=== PATIENT | male | born 1945 | race African-American/Black ===

== ENCOUNTER 2019-04-25 18:03 | Inpatient (IN) ==
[2019-04-25] MEDS ORDERED: SODIUM CHLORIDE 0.9% 500 ML IV STA (18:53)
[2019-04-25] MEDS ORDERED: NALOXONE 0.4 MG/ML VIAL IV STA (18:55)
[2019-04-25 19:40] LABS: Alanine Aminotransferase 23 U/L (16-61); Albumin 1.8 G/DL (3.4-5.0); Alkaline Phosphatase 181 U/L (45-117); Aspartate Amino Transferase 63 U/L (0-37); Blood Urea Nitrogen 48 MG/DL (7-18); Calcium 8.7 MG/DL (8.5-10.1); Estimated Glom Filtration Rate 27 ML/MIN; Glucose 389 MG/DL (74-106); Osmolality,Calculated 298.1 MOS/KG (273-304); Total Protein 6.6 G/DL (6.4-8.3)
[2019-04-25 19:42] LABS: ABG Base Excess 5.3 MMOL/L (-2.5-2.5); ABG HCO3 29.1 MMOL/L (20-26); ABG Oxygen Saturation 97.3 % (95-100); ABG PCO2 29.8 MM HG (35-48); ABG PH 7.559 (7.35-7.45); ABG PO2 80.7 MM HG (80-95); ABG TCO2 22.3 MMOL/L (23-27); Allen Test Positive
[2019-04-25 19:53] LABS: Apearance,Urine CLOUDY (Clear); Bilirubin,Urine Small mg/dL (Negative); Blood, Urine Small mg/dL (Negative); Glucose,Urine (UA) 150 mg/dL (Negative); Ketones,Urine Negative (Negative); Mucus,Urine Occasional /LPF (Occasional); Nitrite,Urine Negative (Negative); Protein,Urine 100 MG/DL; RBC,Urine 3 /HPF (0-4); Squamous Epithelial Cell,Urine Occasional /HPF (0-10); Urine Color Amber (Yellow); Urine Specific Gravity 1.028 (1.001-1.035); WBC,Urine 3 /HPF (0-6)
[2019-04-25 20:13] LABS: Barbiturates Screen,Urine Negative (Negative); Benzodiazepines Screen,Urine Negative (Negative); Cannabinoid Screen,Urine Negative (Negative); Opiate Screen,Urine Positive (Negative); Phencyclidine Screen,Urine Negative (Negative)
[2019-04-25] MEDS ORDERED: SODIUM CHLORIDE 0.9% 1,000 ML IV STA (20:16)
[2019-04-25] MEDS ORDERED: POTASSIUM CHLORIDE RIDER 20 MEQ in PREMIX 1 EACH IV STA (20:39)
[2019-04-25] MEDS ORDERED: cefTRIAXone 1,000 MG in SODIUM CHLORIDE 0.9% 100 ML IV STA (20:39)
[2019-04-25 20:48] LABS: Basophils % 0.1 % (0.0-0.8); Hematocrit 31.5 VOL% (42.0-52.0); Hemoglobin 10.8 GM/DL (14.0-18.0); Immature Granulocytes Absolute 0.17 #; Lymphocytes # 0.9 10*3/uL (1.4-4.0); Lymphocytes % 5.3 % (21.2-54.2); Mean Corpuscular HGB Conc 34.3 GM/DL (32-36); Mean Corpuscular Volume 88.2 FL (87-102); Mean Platelet Volume 11.8 FL (9.6-12.0); Monocytes % 6.5 % (1.7-12.7); Neutrophils % 87.1 % (38.7-73.9); Platelet Count 300 T/CUMM (130-400); Red Blood Count 3.57 MC/CUMM (3.8-5.5); Red Cell Distribution Width 13.3 % (9.3-17.3); White Blood Count 16.9 T/CUMM (4-12)
[2019-04-25 20:53] LABS: INR 1.3; PT Patient Result 14.1 SECS (9.6-12.2)
[2019-04-25] MEDS ORDERED: DOCUSATE SODIUM 100 MG CAPSULE PO PRN (21:04)
[2019-04-25] MEDS ORDERED: ACETAMINOPHEN 325 MG TABLET PO PRN (21:04)
[2019-04-25] MEDS: POTASSIUM CHLORIDE RIDER 10 MEQ in PREMIX 1 EACH IV SCH (21:31)
[2019-04-25] MEDS ORDERED: SODIUM CHLORIDE 0.9% 500 ML IV ONE (23:17)
[2019-04-25] MEDS: SODIUM CHLORIDE 0.9% 1,000 ML IV SCH (23:31)
[2019-04-26] MEDS: POTASSIUM CHLORIDE RIDER 10 MEQ in PREMIX 1 EACH IV SCH (00:14)
[2019-04-26] MEDS ORDERED: VANCOMYCIN INJ 1,750 MG in SODIUM CHLORIDE 0.9% 500 ML IV ONE (01:30)
[2019-04-26 01:39] LABS: Basophils % 0.1 % (0.0-0.8); Hemoglobin 9.5 GM/DL (14.0-18.0); Immature Granulocytes % 1.2 %; Immature Granulocytes Absolute 0.18 #; Lymphocytes # 0.9 10*3/uL (1.4-4.0); Lymphocytes % 5.6 % (21.2-54.2); Mean Corpuscular HGB Conc 33.9 GM/DL (32-36); Mean Corpuscular Volume 88.6 FL (87-102); Mean Platelet Volume 10.8 FL (9.6-12.0); Monocytes % 6.9 % (1.7-12.7); Neutrophils % 86.2 % (38.7-73.9); Platelet Count 260 T/CUMM (130-400); Red Blood Count 3.16 MC/CUMM (3.8-5.5); Red Cell Distribution Width 13.4 % (9.3-17.3); White Blood Count 15.2 T/CUMM (4-12)
[2019-04-26] MEDS ORDERED: VANCOMYCIN INJ 1,250 MG in SODIUM CHLORIDE 0.9% 250 ML IV PRN (01:54)
[2019-04-26] MEDS: ONDANSETRON 4 MG/2 ML VIAL IV PRN ×2 (02:01→10:09)
[2019-04-26 02:23] LABS: Albumin 1.6 G/DL (3.4-5.0); Bilirubin,Total 3.5 MG/DL (0.2-1.0); Calcium 8.2 MG/DL (8.5-10.1); Osmolality,Calculated 313.4 MOS/KG (273-304); Total Protein 5.9 G/DL (6.4-8.3)
[2019-04-26] MEDS: POTASSIUM CHLORIDE RIDER 10 MEQ in PREMIX 1 EACH IV PRN ×6 (03:34→12:11)
[2019-04-26] MEDS: SODIUM CHLORIDE 0.9% 1,000 ML IV SCH ×2 (05:52→08:10)
[2019-04-26] MEDS ORDERED: POTASSIUM CHLORIDE 20 MEQ TABLET PO SCH (09:00)
[2019-04-26] MEDS ORDERED: levETIRAcetam 500 MG TABLET PO SCH (09:00)
[2019-04-26] MEDS ORDERED: PANTOPRAZOLE 40 MG TABLET PO SCH (09:00)
[2019-04-26] MEDS: SODIUM CHLOR 0.9% KCL 40 MEQ 40 MEQ/1,000 ML BAG IV SCH ×2 (10:51→21:59)
[2019-04-26] MEDS ORDERED: POTASSIUM PHOSPHATE 30 MMOL in SODIUM CHLORIDE 0.9% 250 ML IV ONE (10:58)
[2019-04-26] MEDS: DONEPEZIL 10 MG TABLET PO SCH (12:10)
[2019-04-26] MEDS: APIXABAN 2.5 MG TABLET PO SCH ×2 (12:10→20:27)
[2019-04-26] MEDS: POTASSIUM CHLORIDE 20 MEQ TABLET PO SCH ×2 (12:10→20:27)
[2019-04-26 14:06] LABS: Apearance,Urine CLOUDY (Clear); Blood, Urine Large mg/dL (Negative); Glucose,Urine (UA) 50 mg/dL (Negative); Ketones,Urine Negative (Negative); Nitrite,Urine Negative (Negative); Protein,Urine 30 MG/DL; Urine Color Amber (Yellow); Urine Specific Gravity 1.027 (1.001-1.035)
[2019-04-26 14:13] LABS: Bilirubin,Urine Small mg/dL (Negative)
[2019-04-26] MEDS ORDERED: TUBERCULIN SKIN TEST 0.1 ML SYRINGE INTRADERM ONE (15:00)
[2019-04-26] MEDS ORDERED: SODIUM CHLORIDE 0.9% 1,000 ML IV ONE (15:23)
[2019-04-26] MEDS: metroNIDAZOLE INJ 500 MG in PREMIX 1 EACH IV SCH (16:41)
[2019-04-26] MEDS: CIPROFLOXACIN INJ 400 MG in PREMIX 1 EACH IV SCH (17:00)
[2019-04-26] MEDS: NYSTATIN 500,000 UNIT/5 ML UDCUP SWISH/SWAL SCH ×2 (17:32→22:00)
[2019-04-26] MEDS ORDERED: GLUCAGON 1 MG VIAL IM PRN (18:30)
[2019-04-26] MEDS ORDERED: DEXTROSE 10% 250 ML BAG IV PRN (18:30)
[2019-04-26] MEDS ORDERED: cefTRIAXone 1,000 MG in SYRINGE 1 EACH IV SCH (21:00)
[2019-04-26] MEDS: INSULIN REGULAR 100 UNIT/ML SUBCUT SCH (21:58)
[2019-04-27] MEDS: metroNIDAZOLE INJ 500 MG in PREMIX 1 EACH IV SCH ×4 (00:19→17:07)
[2019-04-27] MEDS: INSULIN REGULAR 100 UNIT/ML SUBCUT SCH ×6 (01:28→21:54)
[2019-04-27] MEDS: CIPROFLOXACIN INJ 400 MG in PREMIX 1 EACH IV SCH (04:59)
[2019-04-27] MEDS: SODIUM CHLOR 0.9% KCL 40 MEQ 40 MEQ/1,000 ML BAG IV SCH ×3 (06:09→22:34)
[2019-04-27 07:12] LABS: Basophils % 0.1 % (0.0-0.8); Hematocrit 24.6 VOL% (42.0-52.0); Hemoglobin 8.4 GM/DL (14.0-18.0); Immature Granulocytes % 1.7 %; Immature Granulocytes Absolute 0.25 #; Lymphocytes # 0.5 10*3/uL (1.4-4.0); Lymphocytes % 3.2 % (21.2-54.2); Mean Corpuscular HGB Conc 34.1 GM/DL (32-36); Mean Corpuscular Volume 88.8 FL (87-102); Mean Platelet Volume 10.7 FL (9.6-12.0); Monocytes % 4.4 % (1.7-12.7); NRBC # 0.03 10*3/uL; Neutrophils % 90.6 % (38.7-73.9); Platelet Count 235 T/CUMM (130-400); Red Blood Count 2.77 MC/CUMM (3.8-5.5); Red Cell Distribution Width 14.6 % (9.3-17.3); White Blood Count 14.6 T/CUMM (4-12)
[2019-04-27 07:31] LABS: Calcium 7.7 MG/DL (8.5-10.1)
[2019-04-27 07:47] LABS: Band Neutrophils 5 % (0-10); Hypochromasia 1+; Lymphocytes 4 % (20-55); Segmented Neutrophils 90 % (50-85); Total Cells Counted 100
[2019-04-27 07:48] LABS: Burr Cells Slight; Microcytosis Slight; Target Cells Slight
[2019-04-27 08:48] LABS: Free T4 (Free Thyroxine) 1.61 NG/DL (0.76-1.46); Thyroid Stimulating Hormone 0.04 uIU/ml (0.358-3.74)
[2019-04-27] MEDS: NYSTATIN 500,000 UNIT/5 ML UDCUP SWISH/SWAL SCH ×4 (09:40→23:24)
[2019-04-27] MEDS: APIXABAN 2.5 MG TABLET PO SCH ×2 (09:41→23:24)
[2019-04-27] MEDS: POTASSIUM CHLORIDE 20 MEQ TABLET PO SCH ×2 (09:41→23:24)
[2019-04-27] MEDS: DONEPEZIL 10 MG TABLET PO SCH (09:42)
[2019-04-27] MEDS: INSULIN GLARGINE 100 UNIT/ML SUBCUT SCH (09:42)
[2019-04-27] MEDS: PANTOPRAZOLE 40 MG VIAL IV SCH (09:43)
[2019-04-27 10:10] LABS: Prostate Specific Antigen Diag 10.4 NG/ML (0-4)
[2019-04-27] MEDS: POTASSIUM CHLORIDE RIDER 10 MEQ in PREMIX 1 EACH IV PRN (11:01)
[2019-04-27] MEDS: ONDANSETRON 4 MG/2 ML VIAL IV PRN ×2 (11:08→22:07)
[2019-04-27] MEDS ORDERED: POTASSIUM PHOSPHATE 15 MMOL in SODIUM CHLORIDE 0.9% 100 ML IV ONE (13:00)
[2019-04-28] MEDS: INSULIN REGULAR 100 UNIT/ML SUBCUT SCH ×6 (01:21→21:42)
[2019-04-28] MEDS: metroNIDAZOLE INJ 500 MG in PREMIX 1 EACH IV SCH ×4 (01:21→19:05)
[2019-04-28] MEDS ORDERED: dilTIAZem Drip 125 MG/125 ML PREMIX IV SCH (04:00)
[2019-04-28] MEDS: ONDANSETRON 4 MG/2 ML VIAL IV PRN ×2 (04:16→13:20)
[2019-04-28] MEDS: CIPROFLOXACIN INJ 400 MG in PREMIX 1 EACH IV SCH (05:21)
[2019-04-28] MEDS ORDERED: SODIUM CHLORIDE 0.9% 500 ML IV ONE ×2 (05:38→07:16)
[2019-04-28 06:19] LABS: Basophils % 0.1 % (0.0-0.8); Hematocrit 24.9 VOL% (42.0-52.0); Hemoglobin 8.8 GM/DL (14.0-18.0); Immature Granulocytes % 3.8 %; Lymphocytes # 0.6 10*3/uL (1.4-4.0); Lymphocytes % 4.4 % (21.2-54.2); Mean Corpuscular HGB Conc 35.3 GM/DL (32-36); Mean Corpuscular Volume 85.9 FL (87-102); Mean Platelet Volume 11.2 FL (9.6-12.0); Monocytes % 3.2 % (1.7-12.7); NRBC # 0.03 10*3/uL; Neutrophils % 88.5 % (38.7-73.9); Platelet Count 262 T/CUMM (130-400); Red Cell Distribution Width 15.1 % (9.3-17.3); White Blood Count 13.3 T/CUMM (4-12)
[2019-04-28 06:38] LABS: Band Neutrophils 4 % (0-10); Hypochromasia 1+; Lymphocytes 4 % (20-55); Myelocytes 1 %; Nucleated Red Blood Cells 1 (0-5); Segmented Neutrophils 90 % (50-85); Total Cells Counted 100
[2019-04-28 06:39] LABS: Burr Cells Slight; Microcytosis Slight; Target Cells Slight
[2019-04-28 07:03] LABS: Calcium 7.6 MG/DL (8.5-10.1); Osmolality,Calculated 320.3 MOS/KG (273-304)
[2019-04-28] MEDS: SODIUM CHLOR 0.9% KCL 40 MEQ 40 MEQ/1,000 ML BAG IV SCH (08:01)
[2019-04-28 08:15] VITALS: BP 94/59
[2019-04-28] MEDS: APIXABAN 2.5 MG TABLET PO SCH (09:54)
[2019-04-28] MEDS: DONEPEZIL 10 MG TABLET PO SCH (09:54)
[2019-04-28] MEDS ORDERED: SODIUM PHOSPHATE INJ 30 MMOL in SODIUM CHLORIDE 0.9% 250 ML IV ONE (10:00)
[2019-04-28 10:39] LABS: Albumin 1.2 G/DL (3.4-5.0); Bilirubin,Direct 2.99 MG/DL (0.0-0.20); Bilirubin,Indirect 0.6 MG/DL (0.0-1.0); Bilirubin,Total 3.6 MG/DL (0.2-1.0); Total Protein 4.7 G/DL (6.4-8.3)
[2019-04-28] MEDS: PHENYLEPHRINE DRIP 40 MG/250 ML PREMIX IV PRN ×2 (10:46→20:45)
[2019-04-28] MEDS: INSULIN GLARGINE 100 UNIT/ML SUBCUT SCH (11:05)
[2019-04-28] MEDS: NYSTATIN 500,000 UNIT/5 ML UDCUP SWISH/SWAL SCH ×4 (11:07→20:04)
[2019-04-28] MEDS: PANTOPRAZOLE 40 MG VIAL IV SCH (11:09)
[2019-04-28] MEDS: SODIUM BICARB INJ 50 MEQ in DEXTROSE 5% 1,000 ML IV SCH ×2 (11:37→21:54)
[2019-04-28] MEDS ORDERED: DIAZEPAM 2 MG TABLET PO ONE (13:01)
[2019-04-28] MEDS: MORPHINE 4 MG/1 ML VIAL IV PRN ×2 (16:17→23:51)
[2019-04-29] MEDS: INSULIN REGULAR 100 UNIT/ML SUBCUT SCH ×5 (02:12→18:36)
[2019-04-29] MEDS: metroNIDAZOLE INJ 500 MG in PREMIX 1 EACH IV SCH ×4 (02:12→21:00)
[2019-04-29 04:44] LABS: Albumin 1.3 G/DL (3.4-5.0); Bilirubin,Total 4.7 MG/DL (0.2-1.0); Calcium 7.9 MG/DL (8.5-10.1); Osmolality,Calculated 317.6 MOS/KG (273-304); Total Protein 4.8 G/DL (6.4-8.3)
[2019-04-29] MEDS: CIPROFLOXACIN INJ 400 MG in PREMIX 1 EACH IV SCH (05:05)
[2019-04-29] MEDS: PHENYLEPHRINE DRIP 40 MG/250 ML PREMIX IV PRN ×2 (05:06→19:20)
[2019-04-29] MEDS: SODIUM BICARB INJ 50 MEQ in DEXTROSE 5% 1,000 ML IV SCH ×2 (08:03→19:20)
[2019-04-29] MEDS: INSULIN GLARGINE 100 UNIT/ML SUBCUT SCH (09:24)
[2019-04-29] MEDS: PANTOPRAZOLE 40 MG VIAL IV SCH (09:24)
[2019-04-29] MEDS: NYSTATIN 500,000 UNIT/5 ML UDCUP SWISH/SWAL SCH ×4 (09:24→21:00)
[2019-04-29] MEDS: MORPHINE 4 MG/1 ML VIAL IV PRN (12:35)
[2019-04-29 16:12] LABS: Albumin 1.2 G/DL (3.4-5.0); Calcium 7.3 MG/DL (8.5-10.1); Osmolality,Calculated 313.6 MOS/KG (273-304)
[2019-04-30 00:26] LABS: Creatinine,Urine Random 84 MG/DL; Total Protein,Urine Random 128 MG/DL; Urea Nitrogen, Urine Random 397 MG/DL
[2019-04-30] MEDS: INSULIN REGULAR 100 UNIT/ML SUBCUT SCH ×7 (01:17→23:08)
[2019-04-30] MEDS: metroNIDAZOLE INJ 500 MG in PREMIX 1 EACH IV SCH ×4 (03:09→20:32)
[2019-04-30] MEDS: MORPHINE 4 MG/1 ML VIAL IV PRN ×4 (03:09→17:41)
[2019-04-30] MEDS: CIPROFLOXACIN INJ 400 MG in PREMIX 1 EACH IV SCH (05:08)
[2019-04-30 05:10] LABS: Basophils % 0.3 % (0.0-0.8); Eosinophils % 0.2 % (0.00-10.9); Hematocrit 24.8 VOL% (42.0-52.0); Hemoglobin 8.9 GM/DL (14.0-18.0); Immature Granulocytes % 8.7 %; Immature Granulocytes Absolute 1.33 #; Lymphocytes % 6.6 % (21.2-54.2); Mean Corpuscular HGB Conc 35.9 GM/DL (32-36); Mean Corpuscular Volume 83.8 FL (87-102); Mean Platelet Volume 11.9 FL (9.6-12.0); Monocytes % 1.7 % (1.7-12.7); NRBC # 0.05 10*3/uL; Neutrophils % 82.5 % (38.7-73.9); Platelet Count 172 T/CUMM (130-400); Red Blood Count 2.96 MC/CUMM (3.8-5.5); Red Cell Distribution Width 15.9 % (9.3-17.3); White Blood Count 15.3 T/CUMM (4-12)
[2019-04-30 05:35] LABS: Band Neutrophils 1 % (0-10); Lymphocytes 11 % (20-55); Platelet Estimate Adequate; Segmented Neutrophils 84 % (50-85); Total Cells Counted 100
[2019-04-30 05:36] LABS: Burr Cells Slight; Hypochromasia 1+; Microcytosis Slight; Ovalocytes Slight; Target Cells Few
[2019-04-30] MEDS: SODIUM BICARB INJ 50 MEQ in DEXTROSE 5% 1,000 ML IV SCH ×2 (06:21→16:57)
[2019-04-30] MEDS: PHENYLEPHRINE DRIP 40 MG/250 ML PREMIX IV PRN ×3 (07:39→22:24)
[2019-04-30] MEDS: ALBUMIN 25% 25 GM in PREMIX 1 EACH IV SCH ×2 (09:09→17:03)
[2019-04-30] MEDS: NYSTATIN 500,000 UNIT/5 ML UDCUP SWISH/SWAL SCH ×4 (09:10→20:33)
[2019-04-30] MEDS: PANTOPRAZOLE 40 MG VIAL IV SCH (09:10)
[2019-04-30] MEDS: INSULIN GLARGINE 100 UNIT/ML SUBCUT SCH (09:11)
[2019-04-30 11:51] LABS: Calcium 8.1 MG/DL (8.5-10.1); Osmolality,Calculated 310.8 MOS/KG (273-304)
[2019-04-30] MEDS: ONDANSETRON 4 MG/2 ML VIAL IV PRN (14:44)
[2019-05-01] MEDS: ALBUMIN 25% 25 GM in PREMIX 1 EACH IV SCH (01:21)
[2019-05-01] MEDS: MORPHINE 4 MG/1 ML VIAL IV PRN ×2 (01:22→08:33)
[2019-05-01] MEDS: metroNIDAZOLE INJ 500 MG in PREMIX 1 EACH IV SCH ×3 (01:23→13:50)
[2019-05-01] MEDS: SODIUM BICARB INJ 50 MEQ in DEXTROSE 5% 1,000 ML IV SCH ×3 (02:49→14:36)
[2019-05-01] MEDS: INSULIN REGULAR 100 UNIT/ML SUBCUT SCH ×4 (03:51→14:36)
[2019-05-01] MEDS: CIPROFLOXACIN INJ 400 MG in PREMIX 1 EACH IV SCH (05:28)
[2019-05-01 06:59] LABS: Albumin 1.9 G/DL (3.4-5.0); Bilirubin,Total 7.3 MG/DL (0.2-1.0); Calcium 8.1 MG/DL (8.5-10.1); Osmolality,Calculated 304.3 MOS/KG (273-304); Total Protein 4.7 G/DL (6.4-8.3)
[2019-05-01] MEDS: NYSTATIN 500,000 UNIT/5 ML UDCUP SWISH/SWAL SCH ×2 (08:31→12:29)
[2019-05-01] MEDS: PANTOPRAZOLE 40 MG VIAL IV SCH (08:32)
[2019-05-01] MEDS: INSULIN GLARGINE 100 UNIT/ML SUBCUT SCH (08:33)
[2019-05-01] MEDS ORDERED: DONEPEZIL 5 MG TABLET PO SCH (09:00)
== END 2019-05-01 16:16 | DRG 871 ==
LOC: EDBD → EDUNIT# → N.ED 18:03 → SUATTDRO 21:04 → N.EDINP 21:04 → N.TELES 23:00 → N.4E 04-26 15:37 → N.TELES 04-26 15:44 → N.CC 04-28 09:38
PROVIDERS: ADMIT Internal Medicine; ATTEND Internal Medicine

== ENCOUNTER 2020-08-13 13:32 | Inpatient (IN) ==
[2020-08-13] MEDS ORDERED: SODIUM CHLORIDE 0.9% 1,000 ML IV STA (14:19)
[2020-08-13] MEDS ORDERED: ONDANSETRON 4 MG/2 ML VIAL IV STA (14:19)
[2020-08-13 14:45] LABS: Basophils % 0.3 % (0.0-0.8); Eosinophils % 0.3 % (0.00-10.9); Hematocrit 42.4 VOL% (42.0-52.0); Hemoglobin 14.4 GM/DL (14.0-18.0); Immature Granulocytes % 0.9 %; Immature Granulocytes Absolute 0.11 #; Lymphocytes # 1.2 10*3/uL (1.4-4.0); Lymphocytes % 9.7 % (21.2-54.2); Mean Corpuscular Volume 90.2 FL (87-102); Mean Platelet Volume 10.1 FL (9.6-12.0); Monocytes % 4.7 % (1.7-12.7); Neutrophils % 84.1 % (38.7-73.9); Platelet Count 311 T/CUMM (130-400); Red Cell Distribution Width 13.8 % (9.3-17.3); White Blood Count 12.5 T/CUMM (4-12)
[2020-08-13 15:11] LABS: Alanine Aminotransferase 261 U/L (16-61); Albumin 2.2 G/DL (3.4-5.0); Alkaline Phosphatase 504 U/L (45-117); Aspartate Amino Transferase 172 U/L (0-37); Blood Urea Nitrogen 19 MG/DL (7-18); Calcium 9.5 MG/DL (8.5-10.1); Carbon Dioxide 30 MMOL/L (21-32); Estimated Glom Filtration Rate 45 ML/MIN; Glucose 117 MG/DL (74-106); Osmolality,Calculated 277.7 MOS/KG (273-304); Potassium 4.1 MMOL/L (3.5-5.1); Sodium 138 MMOL/L (136-145); Total Protein 7.2 G/DL (6.4-8.2)
[2020-08-13 15:20] LABS: Band Neutrophils 17 % (0-10); Eosinophils 1 % (0-10); Lymphocytes 10 % (20-55); Segmented Neutrophils 64 % (50-85); Total Cells Counted 100
[2020-08-13 15:21] LABS: Microcytosis Slight
[2020-08-13 15:22] LABS: Platelet Estimate Increased
[2020-08-13 15:36] LABS: Bacteria,Urine Occasional /HPF (Few); Blood, Urine Small mg/dL (Negative); Glucose,Urine (UA) Negative (Negative); Ketones,Urine Negative (Negative); Mucus,Urine Many /LPF (Occasional); Nitrite,Urine Negative (Negative); Protein,Urine 100 MG/DL; RBC,Urine 25 /HPF (0-4); Squamous Epithelial Cell,Urine Occasional /HPF (0-10); Urine Appearance Slightly Hazy (Clear); Urine Color Amber (Yellow); Urine Specific Gravity 1.023 (1.001-1.035)
[2020-08-13 15:38] LABS: Bilirubin,Urine Moderate mg/dL (Negative)
[2020-08-13] MEDS ORDERED: SODIUM CHLORIDE 0.9% 2,550 ML IV ONE (15:50)
[2020-08-13] MEDS ORDERED: VANCOMYCIN INJ 1,250 MG in SODIUM CHLORIDE 0.9% 250 ML IV SCH (16:00)
[2020-08-13] MEDS ORDERED: PIPERACILLIN/TAZOBACTAM 3,375 MG in SODIUM CHLORIDE 0.9% 100 ML IV SCH (16:00)
[2020-08-13] MEDS ORDERED: VANCOMYCIN INJ 2,000 MG in SODIUM CHLORIDE 0.9% 500 ML IV STA (16:06)
[2020-08-13] MEDS ORDERED: ALBUTEROL 2.5 MG/3 ML NEB RESP TX PRN (16:55)
[2020-08-13] MEDS ORDERED: ONDANSETRON 4 MG/2 ML VIAL IV PRN (16:55)
[2020-08-13] MEDS ORDERED: DOPamine 800 MG/250 ML PREMIX IV SCH (17:00)
[2020-08-13] MEDS ORDERED: GLUCAGON 1 MG VIAL IM PRN (17:02)
[2020-08-13] MEDS ORDERED: DEXTROSE 50% 25 GM/50 ML VIAL IV PRN (17:02)
[2020-08-13] MEDS ORDERED: cefOXitin 1,000 MG in SODIUM CHLORIDE 0.9% 100 ML IV SCH (17:30)
[2020-08-13] MEDS: INSULIN LISPRO 100 UNIT/ML SUBCUT SCH (17:52)
[2020-08-13] MEDS: LACTATED RINGERS 1,000 ML IV SCH (18:08)
[2020-08-13] MEDS: PANTOPRAZOLE 40 MG VIAL IV SCH (18:08)
[2020-08-13] MEDS: HYDROCORTISONE 100 MG VIAL IV SCH (18:08)
[2020-08-13] MEDS: ENOXAPARIN 40 MG/0.4 ML SYRINGE SUBCUT SCH (18:08)
[2020-08-13] MEDS: cefOXitin 1,000 MG in SODIUM CHLORIDE 0.9% 100 ML IV SCH (20:59)
[2020-08-13] MEDS: metroNIDAZOLE INJ 500 MG/100 ML PREMIX IV SCH (21:30)
[2020-08-13 23:25] LABS: Blood, Urine Small mg/dL (Negative); Glucose,Urine (UA) 50 mg/dL (Negative); Ketones,Urine 5 mg/dL (Negative); Mucus,Urine Occasional /LPF (Occasional); Nitrite,Urine Negative (Negative); Protein,Urine 100 MG/DL; RBC,Urine 13 /HPF (0-4); Squamous Epithelial Cell,Urine Occasional /HPF (0-10); Urine Appearance CLOUDY (Clear); Urine Color Amber (Yellow); Urine Specific Gravity 1.027 (1.001-1.035)
[2020-08-13 23:26] LABS: Bilirubin,Urine Moderate mg/dL (Negative)
[2020-08-14] MEDS: INSULIN LISPRO 100 UNIT/ML SUBCUT SCH ×4 (00:28→18:33)
[2020-08-14] MEDS: HYDROCORTISONE 100 MG VIAL IV SCH ×3 (00:55→21:15)
[2020-08-14 01:03] LABS: Albumin 1.9 G/DL (3.4-5.0); Bilirubin,Total 3.7 MG/DL (0.2-1.0); Calcium 8.6 MG/DL (8.5-10.1); Osmolality,Calculated 286.3 MOS/KG (273-304); Potassium 3.6 MMOL/L (3.5-5.1); Total Protein 6.1 G/DL (6.4-8.2)
[2020-08-14] MEDS: LACTATED RINGERS 1,000 ML IV SCH ×4 (02:34→18:40)
[2020-08-14] MEDS: metroNIDAZOLE INJ 500 MG/100 ML PREMIX IV SCH ×4 (02:41→21:19)
[2020-08-14] MEDS: cefOXitin 1,000 MG in SODIUM CHLORIDE 0.9% 100 ML IV SCH ×3 (04:16→22:55)
[2020-08-14 05:31] LABS: Basophils % 0.1 % (0.0-0.8); Eosinophils % 0.1 % (0.00-10.9); Hematocrit 33.7 VOL% (42.0-52.0); Immature Granulocytes % 0.4 %; Immature Granulocytes Absolute 0.03 #; Lymphocytes # 0.6 10*3/uL (1.4-4.0); Lymphocytes % 8.8 % (21.2-54.2); Mean Corpuscular HGB Conc 33.2 GM/DL (32-36); Mean Corpuscular Volume 92.6 FL (87-102); Mean Platelet Volume 11.2 FL (9.6-12.0); Monocytes % 3.8 % (1.7-12.7); Neutrophils % 86.8 % (38.7-73.9); Red Cell Distribution Width 14.2 % (9.3-17.3)
[2020-08-14 05:33] LABS: Hemoglobin 11.2 GM/DL (14.0-18.0); Platelet Count 235 T/CUMM (130-400); Red Blood Count 3.64 MC/CUMM (3.8-5.5); White Blood Count 6.8 T/CUMM (4-12)
[2020-08-14 05:37] LABS: Bilirubin,Direct 3.41 MG/DL (0.0-0.20)
[2020-08-14 05:39] LABS: Albumin 1.8 G/DL (3.4-5.0); Bilirubin,Total 4.2 MG/DL (0.2-1.0); Calcium 8.5 MG/DL (8.5-10.1); Osmolality,Calculated 285.4 MOS/KG (273-304); Potassium 3.5 MMOL/L (3.5-5.1)
[2020-08-14 05:50] LABS: Band Neutrophils 3 % (0-10); Eosinophils 1 % (0-10); Hypochromasia Slight; Lymphocytes 9 % (20-55); Microcytosis Slight; Platelet Estimate Adequate; Segmented Neutrophils 82 % (50-85); Total Cells Counted 100
[2020-08-14] MEDS: DONEPEZIL 5 MG TABLET PEG SCH (08:51)
[2020-08-14] MEDS: levETIRAcetam 250 MG TABLET PO SCH ×2 (08:51→21:14)
[2020-08-14 09:22] LABS: INR 1.4; PT Patient Result 14.9 SECS (10.5-12.0)
[2020-08-14] MEDS ORDERED: MIDAZOLAM 2 MG/2 ML VIAL IV ONE (10:12)
[2020-08-14] MEDS ORDERED: fentaNYL 100 MCG/2 ML VIAL IV ONE (10:12)
[2020-08-14] MEDS: PANTOPRAZOLE 40 MG VIAL IV SCH (17:25)
[2020-08-14] MEDS: ENOXAPARIN 40 MG/0.4 ML SYRINGE SUBCUT SCH (17:25)
[2020-08-14] MEDS: VANCOMYCIN INJ 1,250 MG in SODIUM CHLORIDE 0.9% 250 ML IV SCH (23:31)
[2020-08-15] MEDS: INSULIN LISPRO 100 UNIT/ML SUBCUT SCH ×4 (00:01→18:04)
[2020-08-15] MEDS: LACTATED RINGERS 1,000 ML IV SCH ×3 (02:50→18:49)
[2020-08-15] MEDS: metroNIDAZOLE INJ 500 MG/100 ML PREMIX IV SCH ×4 (02:53→21:52)
[2020-08-15] MEDS: cefOXitin 1,000 MG in SODIUM CHLORIDE 0.9% 100 ML IV SCH ×3 (06:08→23:40)
[2020-08-15 07:17] LABS: Albumin 1.8 G/DL (3.4-5.0); Bilirubin,Total 1.6 MG/DL (0.2-1.0); Calcium 8.2 MG/DL (8.5-10.1); Osmolality,Calculated 283.4 MOS/KG (273-304); Potassium 3.5 MMOL/L (3.5-5.1); Total Protein 5.9 G/DL (6.4-8.2)
[2020-08-15 07:37] LABS: Basophils % 0.1 % (0.0-0.8); Hematocrit 30.3 VOL% (42.0-52.0); Hemoglobin 10.6 GM/DL (14.0-18.0); Immature Granulocytes % 0.7 %; Immature Granulocytes Absolute 0.05 #; Lymphocytes # 0.5 10*3/uL (1.4-4.0); Lymphocytes % 7.3 % (21.2-54.2); Mean Platelet Volume 11.3 FL (9.6-12.0); Monocytes % 4.8 % (1.7-12.7); Neutrophils % 87.1 % (38.7-73.9); Platelet Count 226 T/CUMM (130-400); Red Blood Count 3.33 MC/CUMM (3.8-5.5); Red Cell Distribution Width 14.1 % (9.3-17.3); White Blood Count 7.1 T/CUMM (4-12)
[2020-08-15] MEDS: HYDROCORTISONE 100 MG VIAL IV SCH ×2 (09:28→21:52)
[2020-08-15] MEDS: levETIRAcetam 250 MG TABLET PO SCH ×2 (09:28→21:52)
[2020-08-15] MEDS: DONEPEZIL 5 MG TABLET PEG SCH (09:28)
[2020-08-15] MEDS: ENOXAPARIN 40 MG/0.4 ML SYRINGE SUBCUT SCH (18:05)
[2020-08-15] MEDS: PANTOPRAZOLE 40 MG VIAL IV SCH (18:05)
[2020-08-15] MEDS: VANCOMYCIN INJ 1,250 MG in SODIUM CHLORIDE 0.9% 250 ML IV SCH (23:08)
[2020-08-16] MEDS: INSULIN LISPRO 100 UNIT/ML SUBCUT SCH ×4 (00:16→18:07)
[2020-08-16] MEDS: metroNIDAZOLE INJ 500 MG/100 ML PREMIX IV SCH ×2 (02:31→11:07)
[2020-08-16] MEDS: LACTATED RINGERS 1,000 ML IV SCH ×2 (04:00→11:09)
[2020-08-16] MEDS: cefOXitin 1,000 MG in SODIUM CHLORIDE 0.9% 100 ML IV SCH ×2 (05:46→14:40)
[2020-08-16 09:17] LABS: Hematocrit 31.5 VOL% (42.0-52.0); Hemoglobin 10.3 GM/DL (14.0-18.0); Immature Granulocytes Absolute 0.09 #; Lymphocytes # 0.7 10*3/uL (1.4-4.0); Lymphocytes % 7.7 % (21.2-54.2); Mean Corpuscular HGB Conc 32.7 GM/DL (32-36); Mean Corpuscular Volume 92.1 FL (87-102); Mean Platelet Volume 10.8 FL (9.6-12.0); Monocytes % 6.6 % (1.7-12.7); Neutrophils % 84.7 % (38.7-73.9); Platelet Count 252 T/CUMM (130-400); Red Blood Count 3.42 MC/CUMM (3.8-5.5); Red Cell Distribution Width 14.3 % (9.3-17.3); White Blood Count 9.1 T/CUMM (4-12)
[2020-08-16 09:45] LABS: Bilirubin,Total 0.8 MG/DL (0.2-1.0); Calcium 8.6 MG/DL (8.5-10.1); Osmolality,Calculated 286.1 MOS/KG (273-304); Potassium 2.9 MMOL/L (3.5-5.1); Total Protein 5.9 G/DL (6.4-8.2)
[2020-08-16] MEDS: HYDROCORTISONE 100 MG VIAL IV SCH ×2 (11:06→21:37)
[2020-08-16] MEDS: DONEPEZIL 5 MG TABLET PEG SCH (11:07)
[2020-08-16] MEDS: levETIRAcetam 250 MG TABLET PO SCH ×2 (11:08→21:37)
[2020-08-16] MEDS: POTASSIUM CHLORIDE 20 MEQ TABLET PO SCH ×2 (16:50→21:34)
[2020-08-16] MEDS: PANTOPRAZOLE 40 MG VIAL IV SCH (16:50)
[2020-08-16] MEDS: ENOXAPARIN 40 MG/0.4 ML SYRINGE SUBCUT SCH (18:08)
[2020-08-17] MEDS: INSULIN LISPRO 100 UNIT/ML SUBCUT SCH ×4 (01:23→18:03)
[2020-08-17 07:29] LABS: Basophils % 0.1 % (0.0-0.8); Hematocrit 33.2 VOL% (42.0-52.0); Hemoglobin 11.1 GM/DL (14.0-18.0); Immature Granulocytes % 0.7 %; Immature Granulocytes Absolute 0.06 #; Lymphocytes # 0.6 10*3/uL (1.4-4.0); Lymphocytes % 7.5 % (21.2-54.2); Mean Corpuscular HGB Conc 33.4 GM/DL (32-36); Mean Platelet Volume 10.9 FL (9.6-12.0); Monocytes % 7.4 % (1.7-12.7); Neutrophils % 84.3 % (38.7-73.9); Platelet Count 236 T/CUMM (130-400); Red Blood Count 3.65 MC/CUMM (3.8-5.5); Red Cell Distribution Width 14.3 % (9.3-17.3); White Blood Count 8.5 T/CUMM (4-12)
[2020-08-17] MEDS: HYDROCORTISONE 100 MG VIAL IV SCH (08:08)
[2020-08-17] MEDS: DONEPEZIL 5 MG TABLET PEG SCH (08:08)
[2020-08-17] MEDS: levETIRAcetam 250 MG TABLET PO SCH ×2 (08:08→21:13)
[2020-08-17 08:09] LABS: Albumin 1.9 G/DL (3.4-5.0); Bilirubin,Total 0.7 MG/DL (0.2-1.0); Calcium 8.5 MG/DL (8.5-10.1); Osmolality,Calculated 287.1 MOS/KG (273-304); Potassium 3.5 MMOL/L (3.5-5.1); Total Protein 5.9 G/DL (6.4-8.2)
[2020-08-17] MEDS: POTASSIUM CHLORIDE RIDER 10 MEQ in PREMIX 1 EACH IV SCH ×4 (09:12→11:55)
[2020-08-17] MEDS: POTASSIUM CHLORIDE 20 MEQ/15 ML UDCUP PEG SCH ×2 (09:14→21:13)
[2020-08-17] MEDS: BISACODYL 5 MG TABLET PEG SCH ×2 (09:14→17:25)
[2020-08-17] MEDS: PANTOPRAZOLE 40 MG VIAL IV SCH (17:19)
[2020-08-17] MEDS ORDERED: POLYETHYLENE GLYCOL 3350/ELECTROLYTES 4,000 ML BOTTLE PO ONE (18:00)
[2020-08-17] MEDS ORDERED: MAGNESIUM CITRATE 300 ML BOTTLE PEG ONE (21:00)
[2020-08-18] MEDS: INSULIN LISPRO 100 UNIT/ML SUBCUT SCH ×5 (00:10→23:22)
[2020-08-18] MEDS: BISACODYL 5 MG TABLET PEG SCH (00:12)
[2020-08-18 06:18] LABS: Basophils % 0.1 % (0.0-0.8); Eosinophils # 0.1 10*3/uL (0.0-0.87); Eosinophils % 0.8 % (0.00-10.9); Hematocrit 35.3 VOL% (42.0-52.0); Hemoglobin 11.5 GM/DL (14.0-18.0); Immature Granulocytes Absolute 0.13 #; Lymphocytes # 1.5 10*3/uL (1.4-4.0); Lymphocytes % 11.2 % (21.2-54.2); Mean Corpuscular HGB Conc 32.6 GM/DL (32-36); Mean Corpuscular Volume 91.7 FL (87-102); Monocytes % 9.3 % (1.7-12.7); Neutrophils % 77.6 % (38.7-73.9); Platelet Count 255 T/CUMM (130-400); Red Blood Count 3.85 MC/CUMM (3.8-5.5); Red Cell Distribution Width 14.4 % (9.3-17.3)
[2020-08-18 06:42] LABS: Albumin 2.1 G/DL (3.4-5.0); Bilirubin,Total 1.2 MG/DL (0.2-1.0); Calcium 8.7 MG/DL (8.5-10.1); Osmolality,Calculated 276.5 MOS/KG (273-304); Potassium 2.9 MMOL/L (3.5-5.1); Total Protein 6.1 G/DL (6.4-8.2)
[2020-08-18 09:58] LABS: Lymphocytes,Pleural Fluid 47 %; Monocytes,Pleural Fluid 9 %; Neutrophils,Pleural Fluid 44 %
[2020-08-18] MEDS ORDERED: POTASSIUM CHLORIDE RIDER 10 MEQ/100 ML PREMIX IV PRN (09:59)
[2020-08-18] MEDS ORDERED: MAGNESIUM CITRATE 300 ML BOTTLE PO ONE (10:00)
[2020-08-18 10:02] LABS: RBC,Pleural Fluid 13565 T/CUMM
[2020-08-18 10:23] LABS: Amylase,Pleural Fluid 13 U/L; Glucose,Pleural Fluid 119 MG/DL; LDH,Pleural Fluid 276 U/L
[2020-08-18] MEDS ORDERED: SODIUM CHLORIDE IV ONE (12:00)
[2020-08-18] MEDS ORDERED: POTASSIUM CHLORIDE IV ONE (12:00)
[2020-08-18] MEDS: LACTATED RINGERS 1,000 ML IV SCH (12:56)
[2020-08-18] MEDS ORDERED: ETOMIDATE 20 MG/10 ML VIAL IV ONE (13:00)
[2020-08-18] MEDS ORDERED: fentaNYL 100 MCG/2 ML VIAL ONE (13:00)
[2020-08-18] MEDS ORDERED: LIDOCAINE 2% 5 ML VIAL ONE (13:00)
[2020-08-18] MEDS ORDERED: propofoL 200 MG/20 ML VIAL IV ONE (13:00)
[2020-08-18] MEDS: levETIRAcetam 250 MG TABLET PO SCH ×2 (14:54→21:21)
[2020-08-18] MEDS: POTASSIUM CHLORIDE 20 MEQ/15 ML UDCUP PEG SCH ×2 (14:54→21:21)
[2020-08-18] MEDS: DONEPEZIL 5 MG TABLET PEG SCH (14:54)
[2020-08-18] MEDS: PANTOPRAZOLE 40 MG VIAL IV SCH (16:24)
[2020-08-19] MEDS ORDERED: ACETAMINOPHEN 325 MG/10.15 ML UDCUP PO PRN (00:45)
[2020-08-19 05:56] LABS: Basophils % 0.1 % (0.0-0.8); Eosinophils # 0.2 10*3/uL (0.0-0.87); Eosinophils % 1.5 % (0.00-10.9); Hematocrit 32.7 VOL% (42.0-52.0); Hemoglobin 10.8 GM/DL (14.0-18.0); Lymphocytes # 1.1 10*3/uL (1.4-4.0); Lymphocytes % 10.4 % (21.2-54.2); Mean Corpuscular Volume 91.6 FL (87-102); Mean Platelet Volume 10.8 FL (9.6-12.0); Monocytes % 9.4 % (1.7-12.7); Neutrophils % 77.6 % (38.7-73.9); Platelet Count 196 T/CUMM (130-400); Red Blood Count 3.57 MC/CUMM (3.8-5.5); Red Cell Distribution Width 14.5 % (9.3-17.3); White Blood Count 10.4 T/CUMM (4-12)
[2020-08-19 06:12] LABS: Calcium 8.1 MG/DL (8.5-10.1); Osmolality,Calculated 282.1 MOS/KG (273-304); Potassium 3.4 MMOL/L (3.5-5.1)
[2020-08-19] MEDS: INSULIN LISPRO 100 UNIT/ML SUBCUT SCH ×2 (06:31→11:42)
[2020-08-19] MEDS ORDERED: POTASSIUM CHLORIDE 20 MEQ/15 ML UDCUP PER TUBE ONE (07:44)
[2020-08-19] MEDS: levETIRAcetam 250 MG TABLET PO SCH (08:42)
[2020-08-19] MEDS: DONEPEZIL 5 MG TABLET PEG SCH (08:42)
[2020-08-19] MEDS: POTASSIUM CHLORIDE 20 MEQ/15 ML UDCUP PEG SCH (08:42)
[2020-08-19] MEDS: LACTATED RINGERS 1,000 ML IV SCH (11:24)
[2020-08-19 11:45] VITALS: BP 106/55
== END 2020-08-19 15:32 | DRG 871 ==
LOC: EDUNIT# → N.ED 13:32 → N.ICU 16:54 → SUATTDRO 16:54 → N.ICU 17:30 → N.5E 08-14 10:09
PROVIDERS: ADMIT Internal Medicine; ATTEND Family Medicine

== ENCOUNTER 2020-08-31 05:18 | Inpatient (IN) ==
[2020-08-31] MEDS ORDERED: EPINEPHrine 1 MG/ML VIAL ONE ×2 (05:46→07:06)
[2020-08-31 06:01] LABS: ABG Base Excess -11.5 MMOL/L (-2.5-2.5); ABG Oxygen Saturation 73.4 % (95-100); ABG PO2 65.1 MM HG (80-95); ABG TCO2 22.3 MMOL/L (23-27)
[2020-08-31 06:03] LABS: ABG PH 6.975 (7.35-7.45)
[2020-08-31 06:05] LABS: Basophils # 0.1 10*3/uL (0.0-0.2); Basophils % 0.3 % (0.0-0.8); Eosinophils # 0.1 10*3/uL (0.0-0.87); Eosinophils % 0.8 % (0.00-10.9); Hematocrit 31.1 VOL% (42.0-52.0); Hemoglobin 9.2 GM/DL (14.0-18.0); Immature Granulocytes % 8.4 %; Immature Granulocytes Absolute 1.25 #; Lymphocytes # 5.8 10*3/uL (1.4-4.0); Lymphocytes % 38.9 % (21.2-54.2); Mean Corpuscular HGB Conc 29.6 GM/DL (32-36); Mean Corpuscular Volume 101.3 FL (87-102); Mean Platelet Volume 11.5 FL (9.6-12.0); Monocytes % 3.7 % (1.7-12.7); NRBC # 0.04 10*3/uL; Neutrophils % 47.9 % (38.7-73.9); Platelet Count 152 T/CUMM (130-400); Red Blood Count 3.07 MC/CUMM (3.8-5.5); Red Cell Distribution Width 15.8 % (9.3-17.3); White Blood Count 14.9 T/CUMM (4-12)
[2020-08-31 06:07] LABS: INR 1.5; PT Patient Result 16.1 SECS (10.5-12.0)
[2020-08-31 06:22] LABS: Alanine Aminotransferase 100 U/L (16-61); Albumin 1.4 G/DL (3.4-5.0); Alkaline Phosphatase 134 U/L (45-117); Aspartate Amino Transferase 237 U/L (0-37); Blood Urea Nitrogen 9 MG/DL (7-18); Calcium 8.2 MG/DL (8.5-10.1); Carbon Dioxide 21 MMOL/L (21-32); Estimated Glom Filtration Rate 90 ML/MIN; Osmolality,Calculated 301.5 MOS/KG (273-304); Potassium 4.9 MMOL/L (3.5-5.1); Sodium 139 MMOL/L (136-145); Total Protein 4.3 G/DL (6.4-8.2)
[2020-08-31 06:26] LABS: Glucose 566 MG/DL (74-106)
[2020-08-31 07:13] LABS: Band Neutrophils 3 % (0-10); Hypochromasia Slight; Lymphocytes 44 % (20-55); Macrocytosis Slight; Myelocytes 1 %; Platelet Estimate Normal; Segmented Neutrophils 49 % (50-85); Total Cells Counted 100
[2020-08-31] MEDS ORDERED: MORPHINE 4 MG/1 ML VIAL IV STA (07:50)
[2020-08-31] MEDS ORDERED: MORPHINE 4 MG/1 ML VIAL ONE (07:54)
[2020-08-31] MEDS: LORazepam 2 MG/1 ML VIAL IV PRN ×3 (14:49→21:04)
[2020-08-31] MEDS: MORPHINE 4 MG/1 ML VIAL IV PRN ×3 (16:23→19:49)
[2020-08-31] MEDS ORDERED: levETIRAcetam 250 MG TABLET PO SCH (21:00)
[2020-08-31] MEDS ORDERED: levETIRAcetam LIQUID 100 MG/ML 30 ML/BOTTLE PO SCH (21:30)
[2020-08-31 23:25] VITALS: BP 83/49
[2020-09-01 05:27] LABS: ABG PCO2 95.2 MM HG (35-48)
== END 2020-09-01 03:05 | disposition expired | DRG 951 ==
LOC: EDUNIT# → EDBD → N.ED 05:18 → N.EDINP 05:18 → SUATTDRO 10:14 → N.4E 11:15
PROVIDERS: ADMIT Phlebology; ATTEND Internal Medicine